=== PATIENT | female | born 1980 ===

== ENCOUNTER 2023-06-03 12:04 | Outpatient (REF) | payer OTHER, SELFPAY ==
--- NOTE | ~2023-06-03 | MM_ITS ---
EXAMINATION: MM SCREENING DIGITAL BREAST TOMOSYNTHESIS, BILATERAL CLINICAL INFORMATION: Screening. Asymptomatic. COMPARISON: Mammography: There are no prior studies for comparison. This is a baseline examination. TECHNIQUE: Digital breast tomosynthesis is performed in both the craniocaudal and mediolateral oblique views along with computer-aided detection (CAD). Synthesized 2D images are generated from the tomosynthesis. FINDINGS: The breasts are heterogeneously dense, which may obscure small masses (ACR BI-RADS breast composition Category c). There are no significant masses, abnormal calcifications, or other abnormalities. MM/MM tomosynthesis screening BI IMPRESSION: No mammographic evidence of malignancy. ASSESSMENT: BI-RADS BI-RADS 1 - Negative RECOMMENDATION: Routine annual mammography screening. 1 year F/U This examination should not preclude the clinical evaluation of a suspicious palpable abnormality. This patient's information was entered into a reminder system with a target due date for their next mammogram.
== END 2023-06-03 12:05 | disposition home or self-care (01) ==
LOC: HO.MAMMO 12:04
PROVIDERS: PCP Internal Medicine; Visit Provider Internal Medicine
DX: Z12.31 Encounter for screening mammogram for malignant neoplasm of breast (principal)
CPT/HCPCS: 77063; 77067

== ENCOUNTER → 2023-06-03 12:15 | Outpatient (BNV) | payer OTHER, SELFPAY | PROVIDERS: PCP Internal Medicine; Visit Provider Radiology Diagnostic Radiology | DX: Z12.31 Encounter for screening mammogram for malignant neoplasm of breast (principal) | CPT/HCPCS: 77063; 77067 ==

== ENCOUNTER 2023-06-16 10:36 | Outpatient (AMB) | payer OTHER, SELFPAY ==
[2023-06-16 10:40] VITALS: BP 136/98; PULSE 88; O2SAT 99; BMI 27.1
--- NOTE | 2023-06-16 10:40 | A.OFFPC_ITS ---
Vital Signs 06/16/23 10:40 Height 5 ft 3 in Weight 153 lb BMI 27.1 BP 136/98 H Blood Pressure Location Lt brachial Position Sitting Pulse 88 Pulse Source Pulse Oximeter Pulse Oximetry (%) 99 Oxygen Delivery Method Room Air Intake Visit Reasons: PE Intake Note: Patient here for a physical exam Mail Carrier Required: No Accompanied by: Self / Same As Patient Allergies No Known Allergies Allergy (Verified 06/16/23 10:48) Medication List - Last Reconciled 06/16/23 by Brenda Weiss MD hydrochlorothiazide 50 mg PO DAILY 90 days labetalol 400 mg (2 x 200 mg) PO BID 90 days losartan 100 mg PO DAILY 90 days Tobacco use date assessed: 01/21/23 Dental Screening Dental Screen Date: 06/16/23 Did you have a dental visit in the last 12 months?: Yes Did you have a dental problem in the last 6 months where you did not have access to dental care?: No Was dental information given to patient?: Patient has dentist HPI HPI Comments History of Present Illness Details This is a 43-year-old female that comes for her physical exam. Blood pressure borderline normal to elevated and will be recheck in 3 weeks by nurse navigator. She has intentionally losing weight by doing exercise 20-30 minutes per day. Mammogram done but results are still pending. Has an appointment for a OBGYN for her Pap smear which was many years ago. No chest pain or shortness of breath. [facility] History History of hernia surgery History of Family History Father No problems noted. Mother Hypertension Afib Social History Housing: House Alcohol intake: never Patient Tobacco Use Status: Never used Tobacco e-Cigarette/Vaping Use: Never Used Second Hand Smoke Exposure: No service: No Current occupational status: employed Current occupational exposures/hazards: No Cognitive needs: No Hearing needs: No Vision needs: No Questionnaire Thrive Questionnaire Date Thrive assessed: 01/21/23 EAN-7 AMB Questionnaire EAN-7 Date EAN - 7 assessed: 01/21/23 Source: Developed by Drs. Ney De La O, Rima Boswell, Ady Bell and colleagues, with an educational ninfa from [employer]. Review of Systems Const All systems reviewed & are unremarkable except as noted in HPI and below Eyes Reports no additional complaints, Denies change in vision and Denies other visual disturbances Card Denies chest pain at rest, Denies chest pain with activity, Denies edema, Denies irregular heart rhythm, Denies claudication, Denies dyspnea, Denies dyspnea on exertion, Denies orthopnea, Denies paroxysmal nocturnal dyspnea and Denies slow heart rate Resp Denies cough, Denies dyspnea and Denies dyspnea on exertion GI Denies abdominal pain, Denies change in bowel habits, Denies excessive flatus, Denies nausea and Denies vomiting Denies urinary incontinence, Denies urinary hesitancy and Denies urinary urgency Musc Denies abnormal gait, Denies atrophy, Denies deformity and Denies limited range of motion Skin/Breast Denies bleeding lesions, Denies changing lesions and Denies rash Neuro Denies abnormal gait, Denies behavioral changes, Denies confusion and Denies lack of coordination Psych Denies behavioral changes and Denies confusion Physical exam (Primary Care) Vital Signs: Last Vital Signs Pulse 88 06/16/23 10:40 BP 136/98 H 06/16/23 10:40 Pulse Ox 99 06/16/23 10:40 Oxygen Delivery Method Room Air 06/16/23 10:40 BMI result Body Mass Index 27.1 Tobacco/Smoking Status: Tobacco use Status Tobacco use date assessed 01/21/23 06/16/23 10:43 Patient Tobacco Use Status Never used Tobacco 06/16/23 10:43 e-Cigarette/Vaping Use Never Used 06/16/23 10:43 Thrive Assessment: Date of Thrive Assessment Date Thrive assessed 01/21/23 06/16/23 10:43 Const General: No confusion Orientation/consciousness: patient oriented x3 and No confusion HENMT Head: Yes normal to inspection, Yes normocephalic and Yes atraumatic Ears: external ears normal Eyes General: appearance normal, both eyes and all related structures Eyelids: Yes eyelids normal Conjunctivae: conjunctivae normal Neck Neck: Yes normal visual inspection and Yes supple Resp Effort & Inspection: normal respiratory effort Auscultation: clear to auscultation bilaterally Cardio Jugular venous distension: no JVD Rate: regular rate Rhythm: regular rhythm Heart sounds: S1 normal heart sound present and S2 normal heart sound present GI Inspection: Yes normal to inspection Palpation (GI): Soft to palpation and nontender Auscultation: normal bowel sounds Skin General skin exam: no rashes or lesions noted Neuro General: patient oriented x3, no focal motor deficits and No confusion Extrem General: Yes full ROM Psych Appearance: grossly normal Office Procedures Flu Questionnaire Does the patient have a severe egg allergy?: No Does the patient have severe life threatening allergies?: No Does the patient have a fever or illness today?: No Has the patient ever had Guillain-[place] Syndrome?: No Has the patient ever had any past reaction to a flu shot?: No Immunizations flu vacc [id number] 6mos up(PF) 60 mcg(15 mcgx4)/0.5 mL IM syringe Performing Provider: Brenda Weiss MD Performing Location: [facility] Administered by: SOFIA Higuera on 06/16/23 10:59 Dose Route Admin Location Dispensed Lot Number Expiration Date NDC Cart[employer] An[employer]ator 0.5 mL IM Left Deltoid 0.5 mL [id number] 01/31/24 49650-855-23 [employer] VIS Given Date VIS Provided VIS Publication Date 06/16/23 Single Vaccine 21 Eligibility Eligibility Date Funding Source Not [facility] Eligible 06/16/23 Private Assessment and Plan Assessment & Plan (1) Physical exam: Code(s): Z00.00 - Encounter for general adult medical examination without abnormal findings Plan: Repeat in a year. Orders: Orders Influenza [id number] Immunization Today Z23 - Encounter for immunization Coding Level of Care Code Est Pt Prev Care 40-64y(47022) Diagnoses Physical exam Z00.00 Time Spent (min) 32
== END 2023-06-16 11:06 | disposition home or self-care (01) ==
PROVIDERS: PCP Internal Medicine; Visit Provider Internal Medicine
DX: Z00.00 Encounter for general adult medical examination without abnormal findings (principal); Z23 Encounter for immunization
CPT/HCPCS: 90471; 90686; 99396

== ENCOUNTER 2025-06-07 16:14 | Outpatient (AMB) | payer OTHER, SELFPAY ==
--- NOTE | 2025-06-07 16:23 | MHC.PC.OV ---
Vital Signs 06/07/25 16:24 Height 5 ft 3 in Weight 137 lb 8 oz BMI 24.4 BP 138/70 Blood Pressure Location Lt brachial Position Sitting Respiration 18 Pulse 89 Pulse Source Pulse Oximeter Temp 97.3 F Temp Source Temporal Artery Scan Pulse Oximetry (%) 100 Oxygen Delivery Method Room Air Intake Visit Reasons: annual physical Field Observer Required: No Accompanied by: Self / Same As Patient Allergies No Known Allergies Allergy (Verified 06/07/25 16:34) Medication List - Last Reconciled 06/07/25 by Brenda Weiss MD hydrochlorothiazide 50 mg PO DAILY 90 days labetalol 400 mg (2 x 200 mg) PO BID 90 days losartan 100 mg PO DAILY 90 days Tobacco use date assessed: 06/07/25 Dental Screening Dental Screen Date: 06/07/25 Did you have a dental visit in the last 12 months?: Yes Did you have a dental problem in the last 6 months where you did not have access to dental care?: No Was dental information given to patient?: Patient has dentist HPI HPI Comments History of Present Illness Details The patient is a 45-year-old female presenting for an annual physical examination. She has a history of hypertension, which is managed with hydrochlorothiazide 50 mg, labetalol 400 mg, and losartan 100 mg daily, and her blood pressure is noted to be well-controlled. Her past surgical history includes a hernia repair and a section. She reports the onset of an itchy rash on her arms a couple of days ago, which she associates with trying a new mushroom coffee. She denies any other new exposures such as detergents or animals. Regarding health maintenance, her last mammogram was in 2022, and she has an appointment for her next one in July. Her last Pap smear was likely more than five years ago, and she is due for another. She has never had a colonoscopy and has no family history of colon cancer or symptoms of hematochezia. Her last tetanus vaccination was likely 11 years ago during . Her father at age 76 from a sudden intestinal rupture. Her mother is alive and has atrial fibrillation and hypertension. The patient reports no known drug allergies, does not drink alcohol, and has never smoked. For preventative care, the patient received an influenza vaccine today. She is due for a tetanus vaccine and will schedule a separate nurse visit for it. A referral will be made for a Pap smear, as she is overdue. She has an upcoming mammogram scheduled for next month. A Cologuard test was ordered for colon cancer screening. Fasting labs for cholesterol, kidney, and liver function have been ordered. [facility] Surgical History History of hernia surgery History of Family History Father No problems noted. Mother Hypertension Afib Social History Housing: House Alcohol intake: never Patient Tobacco Use Status: Never used Tobacco e-Cigarette/Vaping Use: Never Used Second Hand Smoke Exposure: No service: No Current occupational status: employed Current occupational exposures/hazards: No Cognitive needs: No Hearing needs: No Vision needs: No Questionnaire PHQ-9 Over the last 2 weeks, how often have you been bothered by any of the following problems? 1. Little interest or pleasure in doing things: not at all 2. Feeling down, depressed, or hopeless: not at all 3. Trouble falling or staying asleep, or sleeping too much: not at all 4. Feeling tired or having little energy: not at all 5. Poor appetite or overeating: not at all 6. Feeling bad about yourself - or that you are a failure or have let yourself or your family down: not at all 7. Trouble concentrating on things, such as reading the newspaper or watching television: not at all 8. Moving or speaking so slowly that other people could have noticed. Or the opposite - being so fidgety or restless that you have been moving around a lot more than usual: not at all 9. Thoughts that you would be better off or of hurting yourself in some way: not at all Total score: 0 Depression Screening Interpretation: Negative Depression Screening Done: Yes 89378 - PHQ-9 Billing: Yes Source: Developed by Drs. Ney De La O, Rima Boswell, Ady Bell and colleagues, with an educational ninfa from [employer]. Thrive Questionnaire Date Thrive assessed: 06/05/25 I am a: Patient What is your living situation today?: I have a steady place to live Within the past 12 months, did the food you bought not last and you didn't have the money to get more?: Never true Within the past 12 months, did you worry whether your food would run out before you got money to buy more?: Never true Do you have trouble paying for medicines?: No Do you have trouble getting transportation to medical appointments?: No Do you have trouble paying your heating and electricity bill?: No Do you have trouble taking care of your child, family member or friend?: No Do you have trouble with day-to-day activities such as bathing, preparing meals, shopping, managing finances, etc.?: No Are you currently unemployed and looking for a job?: No Are you interested in more education?: No Please select the resources that you would like help with: None Currently or been in a relationship where the following occur: No concerns reported THRIVE Score: 0 AUDIT C Alcohol Use Questionnaire (AUDIT-C) 1. How often do you have a drink containing alcohol?: Never 3. How often do you have six or more drinks on one occasion?: Never Total Score: 0 Score Reviewed/Action Taken: No EAN-7 AMB Questionnaire EAN-7 Date EAN - 7 assessed: 01/21/23 Feeling nervous, anxious, or on edge: 0 = Not at all Not being able to stop or control worryin = Not at all Worrying too much about different things: 0 = Not at all Trouble relaxin = Not at all Being so restless that it is hard to sit still: 0 = Not at all Becoming easily annoyed or irritable: 0 = Not at all Feeling afraid as if something awful might happen: 0 = Not at all Total EAN-7 score (0-4 normal; 5-9 mild; 10-14 moderate; 15-21 severe): 0 Source: Developed by Drs. Ney De La O, Rima Boswell, Ady Bell and colleagues, with an educational ninfa from [employer]. EAN-7 Assessment Billing EAN-7 Assessment Tool: EAN-7 Assessment 24387 Review of Systems Const All systems reviewed & are unremarkable except as noted in HPI and below Card Denies chest pain at rest, Denies chest pain with activity, Denies edema, Denies irregular heart rhythm, Denies claudication, Denies dyspnea, Denies dyspnea on exertion, Denies orthopnea, Denies paroxysmal nocturnal dyspnea and Denies slow heart rate Resp Denies cough, Denies dyspnea and Denies dyspnea on exertion GI Denies abdominal pain, Denies change in bowel habits, Denies excessive flatus, Denies nausea and Denies vomiting Denies urinary incontinence, Denies urinary hesitancy and Denies urinary urgency Musc Denies atrophy, Denies deformity and Denies limited range of motion Skin/Breast Denies bleeding lesions, Denies changing lesions and Denies rash Physical exam (Primary Care) Vital Signs: Last Vital Signs Temp 97.3 F 06/07/25 16:24 Pulse 89 06/07/25 16:24 Resp 18 06/07/25 16:24 BP 138/70 06/07/25 16:24 Pulse Ox 100 06/07/25 16:24 Oxygen Delivery Method Room Air 06/07/25 16:24 BMI result Body Mass Index 24.4 Tobacco/Smoking Status: Tobacco use Status Tobacco use date assessed 06/07/25 06/07/25 16:29 Patient Tobacco Use Status Never used Tobacco 06/07/25 16:29 e-Cigarette/Vaping Use Never Used 06/07/25 16:29 PHQ-9: PHQ-9 Score PHQ-9: Total score 0 06/07/25 16:51 Depression Screening Interpretation: Negative Thrive Assessment: Date of Thrive Assessment Date Thrive assessed 06/05/25 06/07/25 16:29 Currently or been in a relationship where the following occur: No concerns reported [facility] Head: Yes normal to inspection, Yes normocephalic and Yes atraumatic Ears: external ears normal Eyes General: appearance normal, both eyes and all related structures Eyelids: Yes eyelids normal Conjunctivae: conjunctivae normal Neck Neck: Yes normal visual inspection and Yes supple Resp Effort & Inspection: normal respiratory effort Auscultation: clear to auscultation bilaterally Cardio Jugular venous distension: no JVD Rate: regular rate Rhythm: regular rhythm Heart sounds: S1 normal heart sound present and S2 normal heart sound present GI Inspection: Yes normal to inspection Palpation (GI): Soft to palpation and nontender Auscultation: normal bowel sounds Skin Rashes: rashes noted maculopapular rash bilateral anterior arm Neuro General: no focal motor deficits Extrem General: Yes full ROM Psych Appearance: grossly normal Office Procedures Flu Questionnaire Does the patient have a severe egg allergy?: No Does the patient have severe life threatening allergies?: No Does the patient have a fever or illness today?: No Has the patient ever had Guillain-[place] Syndrome?: No Has the patient ever had any past reaction to a flu shot?: No Immunizations Fluarix [id number] (PF) 45 mcg (15 mcg x 3)/0.5 mL IM syringe Performing Provider: Brenda Weiss MD [facility] Administered by: Kamilla Astudillo CMA on 06/07/25 16:50 Dose Route Admin Location Dispensed Lot Number Expiration Date NDC [employer] 0.5 mL IM Left Deltoid 0.5 mL [id number] 01/30/26 44923-157-60 [employer] VIS Given Date VIS Provided VIS Publication Date 06/07/25 Single Vaccine 24 Eligibility Eligibility Date Funding Source Not [facility] Eligible 06/07/25 Private Coding Level of Care Code Est Pt Level 3 (08885) Est Pt Prev Care 40-64y(68302) Diagnoses Physical exam Z00.00 Allergic reaction T78.40XA Additional Codes EAN-7 Assessment Billing - EAN-7 Assessment Tool: EAN-7 Assessment 92297 ([id number]) PHQ-9 - 76573 - PHQ-9 Billing: Yes ([id number]) Time Spent (min) 32 Assessment & Plan Assessment & Plan (1) Physical exam: Code(s): Z00.00 - Encounter for general adult medical examination without abnormal findings Category: Medical (2) Allergic reaction: Code(s): T78.40XA - Allergy, unspecified, initial encounter Category: Medical Plan Plan 1. Encounter for general adult medical examination without abnormal findings Z00.00 Repeat in a year. Continue yearly mammogram. Refer to CUSTOMER ENGAGEMENT REPRESENTATIVE for Pap Smear. Cologuard ordered for colon cancer screening. 2. Allergic contact dermatitis, unspecified cause L23.9 The patient presents with a new onset, pruritic rash on her arms, which began a few days ago. This is suspected to be a dermatitis, possibly an allergic reaction to a new mushroom coffee she tried. The plan includes prescribing an oral antihistamine, a prednisone pack, and a topical cream for the localized rash. The patient was instructed to complete her fasting blood work prior to starting the prednisone, as it can elevate blood sugar levels. Orders: Orders Lipid Panel Today Z00.00 - Encounter for general adult medical examination without abnormal findings Comprehensive [place]. Panel Fast Today Z00.00 - Encounter for general adult medical examination without abnormal findings Influenza [id number] Immunization Today Z23 - Encounter for immunization Referrals Cologuard Test Z12.11 - Encounter for screening for malignant neoplasm of colon, Z12.12 - Encounter for screening for malignant neoplasm of rectum CUSTOMER ENGAGEMENT REPRESENTATIVE Referral Z12.4 - Encounter for screening for malignant neoplasm of cervix Medications: New cetirizine (Allergy Relief (cetirizine)) 10 mg PO DAILY PRN 30 tabs 0RF allergy symptoms 30 days hydrocortisone 1% (Anti-Itch (hydrocortisone)) 1 appl topical TID PRN 28.4 grams 0RF skin irritation 2 weeks prednisone Take 4 tabs for 2 days, then 3 tabs for 2 days, then 2 tabs for 2 days, then 1 tab for 2 days 10 mg PO DIRECTED 20 tabs 0RF 8 days T78.40XA - Allergy, unspecified, initial encounter
[2025-06-07 16:24] VITALS: BP 138/70; PULSE 89; RESP 18; TEMP 36.3; O2SAT 100; BMI 24.4
--- OUTSIDE RECORDS SUMMARY | 2025-06-07 18:56 | XMS_ITS | Patient Health Record ---
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 Name Role Phone Madison RIVERS, Sophie Primary Care Provider Unavail able Best Miller Unavailable [phone] Medications Medication SIG (Take, Route, Frequency, Duration) Notes Start Date End Date Status Diclegis Active Labetalol HCl Active hydroCHLOROthiazide Active NIFEdipine ER Active Potassium Active Multi Adriana-Bets/Fluoride Active amLODIPine Besylate Active Problems Problem Type SNOMED Code ICD Code Onset Dates Problem Status W/U Status Risk Notes Problem Pityriasis versicolor (24611919) Pityriasis versicolor (111.0) Active confirmed selenium sulfide shapmppo safe to use on patch R upper arm Problem Sebaceous cyst (294028085) Sebaceous cyst (706.2) Active confirmed Plan Of Treatment No Information Insurance Providers Payer Name Payer Address Payer Phone Subscriber Number Group Number Insured Name Patient Relationship to Insured Coverage Start Date Coverage End Date [facility] [address] [address] [place] [phone] [id number] Isaac Wells Spouse - patient is the spouse of the insured Medical (General) History Medical History History ICD Code hypertension Surgical History Surgery Date(Month/Year) section 2010
== END 2025-06-07 17:01 | disposition home or self-care (01) ==
LOC: HO.HMCH 16:16
PROVIDERS: PCP Internal Medicine; Visit Provider Internal Medicine
DX: Z00.00 Encounter for general adult medical examination without abnormal findings (principal); T78.40XA Allergy, unspecified, initial encounter; Z23 Encounter for immunization

== ENCOUNTER → 2025-06-07 16:14 | Outpatient (BNVA) | payer OTHER, SELFPAY | PROVIDERS: PCP Internal Medicine; Visit Provider Internal Medicine | DX: Z00.00 Encounter for general adult medical examination without abnormal findings (principal); R21 Rash and other nonspecific skin eruption; L23.9 Allergic contact dermatitis, unspecified cause; Z23 Encounter for immunization; Z91.09 Other allergy status, other than to drugs and biological substances; Z79.899 Other long term (current) drug therapy | CPT/HCPCS: 90471; 90656; 96127; 99212; 99396 ==

== ENCOUNTER 2025-06-08 11:27 | Outpatient (REF) | payer OTHER, SELFPAY ==
[2025-06-08 12:33] LABS: Alanine Aminotransferase 30 U/L (0-31); Albumin Level 4.7 g/dL (3.5-5.0); Alkaline Phosphatase 45 U/L (39-117); Anion Gap 11 (12-20); Aspartate Amino Transferase 27 U/L (5-31); Blood Urea Nitrogen 20 mg/dL (9-16); Calcium 9.5 mg/dL (8.4-10.2); Carbon Dioxide 30 mmol/L (22-29); Chloride 104 mmol/L (96-108); Cholesterol 192 mg/dL (<200); Estimated Glomerular Filt Rate > 60; HDL Cholesterol 73 mg/dL (>40); Potassium 3.4 mmol/L (3.3-5.1); Sodium 142 mmol/L (135-145); Total Protein 6.8 g/dL (6.5-8.0); Triglycerides 105 mg/dL (<150)
== END 2025-06-08 11:28 | disposition home or self-care (01) ==
LOC: HO.LAB 11:27
PROVIDERS: PCP Internal Medicine; Visit Provider Internal Medicine
DX: Z00.00 Encounter for general adult medical examination without abnormal findings (principal); B35.1 Tinea unguium
CPT/HCPCS: 36415; 80053; 80061; 80076; 82248